=== PATIENT | female | born 1990 | race Two or more races ===

== ENCOUNTER 2023-12-12 21:51 | Emergency (ER) | payer MEDICAID, OTHER ==
[~2023-12-12] VITALS: Ht 167.6 cm; Wt 98.3 kg
[2023-12-12 21:59] VITALS: BP 115/78; PULSE 72; RESP 20; O2SAT 100
[2023-12-12 23:08] LABS: Urine Bacteria None Seen /hpf (None Seen)
[2023-12-12 23:14] LABS: Urine Blood Negative /uL (Negative); Urine Clarity Clear (Clear); Urine Color Light-Yellow (Yellow); Urine Mucus FEW (None Seen); Urine Protein, UAD Negative (Negative); Urine Specific Gravity 1.022 (1.001-1.035); Urine Urobilinogen Normal (Negative); Urine WBC 1 /hpf (0 - 5)
== END 2023-12-13 05:28 | disposition left against medical advice (07) ==
LOC: ER 21:51
DX: R10.9 Unspecified abdominal pain (principal); R11.2 Nausea with vomiting, unspecified; Z53.21 Procedure and treatment not carried out due to patient leaving prior to being seen by health care provider
CPT/HCPCS: 81001